=== PATIENT | female | born 2000 | race Two or more races ===

== ENCOUNTER 2019-09-11 18:30 | Emergency (ER) | payer MEDICAID ==
[~2019-09-11] VITALS: Ht 160 cm; Wt 46.4 kg
[2019-09-11] MEDS ORDERED: CETI10TA59 PO (18:42)
[2019-09-11] MEDS ORDERED: MONT10TA21 PO (18:42)
[2019-09-11] MEDS ORDERED: PERTUSS(ACELL),DIPH,TET VAC/PF 0.5 ML VIAL IM ONE (21:00)
[2019-09-11] MEDS ORDERED: DOXYCYCLINE HYCLATE 100 MG CAPSULE PO ONE (21:15)
[2019-09-11] MEDS ORDERED: RABIES VAC,PF CHICK-EMB CELL 2.5 UNITS/ML SYRINGE IM ONE (21:15)
[2019-09-11] MEDS ORDERED: RABIES IMMUNE GLOBULIN/PF 300 UNITS/ML 5 ML VIAL IM ONE (21:15)
[2019-09-11] MEDS ORDERED: CLINDAMYCIN HCL 150 MG CAPSULE PO ONE (21:15)
[2019-09-11 23:00] VITALS: BP 117/67
== END 2019-09-11 23:14 | disposition home or self-care (01) ==
LOC: EMS 18:31
DX: S61.353A Open bite of left middle finger with damage to nail, initial encounter (principal); Z98.890 Other specified postprocedural states; Z88.0 Allergy status to penicillin; Z79.899 Other long term (current) drug therapy; W54.0XXA Bitten by dog, initial encounter; Y93.89 Activity, other specified; Y92.89 Other specified places as the place of occurrence of the external cause; Y99.8 Other external cause status
CPT/HCPCS: 90375; 90471; 90472; 90675; 90715; 96372

== ENCOUNTER 2019-09-14 17:16 | Emergency (ER) | payer MEDICAID ==
[~2019-09-14] VITALS: Ht 162.6 cm; Wt 46.4 kg
[~2019-09-14 17:16] MED LIST: CETI10TA59 PO; MONT10TA21 PO
[2019-09-14 17:18] VITALS: BP 116/87
[2019-09-14] MEDS ORDERED: RABIES VAC,PF CHICK-EMB CELL 2.5 UNITS/ML SYRINGE IM ONE (18:00)
== END 2019-09-14 18:21 | disposition home or self-care (01) ==
LOC: EMS 17:22
DX: Z23 Encounter for immunization (principal); Z88.0 Allergy status to penicillin
CPT/HCPCS: 90471; 90675

== ENCOUNTER 2019-09-24 15:34 | Emergency (ER) | payer MEDICAID ==
[~2019-09-24] VITALS: Ht 160 cm; Wt 46.4 kg
[2019-09-24] MEDS ORDERED: RABIES VAC,PF CHICK-EMB CELL 2.5 UNITS/ML SYRINGE IM ONE (15:45)
[2019-09-24 16:26] VITALS: BP 116/67
== END 2019-09-24 16:33 | disposition home or self-care (01) ==
LOC: EMS 15:38
DX: S61.252D Open bite of right middle finger without damage to nail, subsequent encounter (principal); Z23 Encounter for immunization; Z88.0 Allergy status to penicillin; Z98.890 Other specified postprocedural states; W54.0XXD Bitten by dog, subsequent encounter
CPT/HCPCS: 90471; 90675